=== PATIENT | male | born 2000 | race Caucasian/White ===

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

== ENCOUNTER 2021-11-07 16:17 | Emergency (ER) | payer OTHER ==
[~2021-11-07] VITALS: Ht 175.3 cm; Wt 65.8 kg
[2021-11-07 16:34] VITALS: BP 137/75
[2021-11-07] MEDS ORDERED: LIDOCAINE MPF 1% 5 ML ONE (16:38)
[2021-11-07] MEDS ORDERED: LIDOCAINE MPF 1% 10 MG/ML VIAL INJ ONE (16:40)
[2021-11-07] MEDS ORDERED: BACITRACIN OINT 500 UNITS/GM PKT TP ONE (16:40)
[2021-11-07] MEDS ORDERED: IBUP-1842 PO (16:54)
[2021-11-07] MEDS ORDERED: BACI1PAC6 TP (16:54)
[2021-11-07 17:07] VITALS: BP 123/72
--- NOTE | 2021-11-07 17:16 | NUR ---
NO NURSING CARE RENDERED. Patient discharged with v/s stable. Written and verbal after care instructions given and explained. Patient alert, oriented and verbalized understanding of instructions. Ambulatory with steady gait. All questions addressed prior to discharge. ID band removed. Patient advised to follow up with PMD. Rx of BACITRACIN OINT,IBU given. Patient educated on indication of medication including possible reaction and side effects. Opportunity to ask questions provided and answered.
== END 2021-11-07 17:07 | disposition home or self-care (01) ==
LOC: MED 16:17
DX: S61.412A Laceration without foreign body of left hand, initial encounter (principal); W26.0XXA Contact with knife, initial encounter; Y93.89 Activity, other specified; Y92.89 Other specified places as the place of occurrence of the external cause; Y99.8 Other external cause status
CPT/HCPCS: 12001; 90471; 90715; 99283; J2001